=== PATIENT | female | born 1995 | race Caucasian/White ===

== ENCOUNTER 2016-12-23 20:20 | Emergency (ER) | payer BC ==
[2016-12-23] MEDS ORDERED: diphenhydrAMINE 50 MG/ML 1 ML VIAL ONE (21:15)
[2016-12-23] MEDS ORDERED: methylPREDNISolone SOD SUCCI 125 MG/2 ML VIAL ONE (21:15)
[2016-12-23] MEDS ORDERED: ONDANSETRON 4 MG/2 ML VIAL ONE (21:15)
[2016-12-23] MEDS ORDERED: FAMOTIDINE 20 MG/2 ML VIAL ONE (21:15)
[2016-12-23] MEDS ORDERED: SODIUM CHLORIDE 0.9% 500 ML BAG ONE (21:15)
== END 2016-12-23 21:44 | disposition home or self-care (01) ==
LOC: EC 20:20
DX: T78.1XXA Other adverse food reactions, not elsewhere classified, initial encounter (principal); L50.9 Urticaria, unspecified
CPT/HCPCS: 99283; 96374; 96375 ×3; J1200; J2930; J2405

== ENCOUNTER → 2019-06-18 | Outpatient (CLI) | payer OTHER ==
--- NOTE | 2019-06-18 16:39 | XR ---
EXAMINATION TYPE: XR wrist complete RT DATE OF EXAM: 06/18/2019 CLINICAL HISTORY: pain TECHNIQUE: Frontal, lateral and oblique images of the right hand are obtained. COMPARISON: None. FINDINGS: There is no acute fracture/dislocation evident. The joint spaces appear within normal limi ts. The overlying soft tissue appears unremarkable. IMPRESSION: There is no acute fracture or dislocation ICD 10 NO FRACTURE, INITIAL EVALUATION EXAMINATION TYPE: XR wrist complete RT DATE OF EXAM: 06/18/2019 CLINICAL HISTORY: pain TECHNIQUE: Frontal, lateral and oblique images of the right wrist are obtained. COMPARISON: None. FINDINGS: There is no acute fracture/dislocation evident. The joint spaces appear within normal limits. The o verlying soft tissue appears unremarkable. IMPRESSION: There is no acute fracture or dislocation seen. ICD 10 NO FRACTURE, INITIAL EVALUATION
== END | disposition home or self-care (01) ==
LOC: RADXRMAIN 16:09
PROVIDERS: ATTEND Emergency Medicine
DX: M65.4 Radial styloid tenosynovitis [de Quervain] (principal)

== ENCOUNTER → 2019-06-25 | Outpatient (CLI) | payer OTHER ==
--- NOTE | 2019-06-25 12:04 | XR ---
EXAMINATION TYPE: XR wrist complete RT DATE OF EXAM: 06/25/2019 CLINICAL HISTORY: Right wrist pain, follow-up from 06/16/2019 injury TECHNIQUE: Frontal, lateral and oblique images of the right wrist are obtained. Additional scaphoid view was obtained. COMPARISON: None FINDINGS: There is no acute fracture/dislocation evident in the right wrist. The joint spaces in th e right wrist appear within normal limits. Carpal carpal interspaces are within normal limits. The ov erlying soft tissue appears unremarkable. IMPRESSION: There is no acute fracture or dislocation in the right wrist.
== END | disposition home or self-care (01) ==
LOC: RADXRMAIN 11:06
PROVIDERS: ATTEND Emergency Medicine
DX: M65.4 Radial styloid tenosynovitis [de Quervain] (principal); M25.531 Pain in right wrist; S69.91XA Unspecified injury of right wrist, hand and finger(s), initial encounter

== ENCOUNTER → 2019-07-22 | Outpatient (CLI) | payer OTHER ==
--- NOTE | 2019-07-22 12:44 | XR ---
EXAMINATION TYPE: XR wrist complete RT DATE OF EXAM: 07/22/2019 COMPARISON: NONE HISTORY: Pain TECHNIQUE: Four views submitted. FINDINGS: The osseous structures are intact. The joint spaces are preserved and there is no acute fracture or dislocation. IMPRESSION: 1. No definite acute fracture or dislocation if symptoms persist, follow-up study in 7 to 10 days wo uld be suggested
--- NOTE | 2019-07-22 12:48 | XR ---
EXAMINATION TYPE: XR hand complete RT DATE OF EXAM: 07/22/2019 COMPARISON: NONE HISTORY: Pain TECHNIQUE: Three views are submitted. FINDINGS: The osseous structures are intact. The joint spaces are preserved and there is no acute fracture or dislocation. IMPRESSION: 1. No definite acute fracture or dislocation if symptoms persist, follow-up study in 7 to 10 days wo uld be suggested
== END | disposition home or self-care (01) ==
LOC: RADXRMAIN 11:57
PROVIDERS: ATTEND Emergency Medicine
DX: M65.4 Radial styloid tenosynovitis [de Quervain] (principal)